=== PATIENT | female | born 1965 ===

== ENCOUNTER 2017-09-28 20:07 | Inpatient (IN) | payer OTHER ==
[2017-09-28 20:47] LABS: Hematocrit 35.5 % (30.3-42.9); Hemoglobin 11.7 gm/dl (10.1-14.3); Mean Corpuscular HGB Conc 33 % (30-34); Mean Corpuscular Hemoglobin 27 pg (28-32); Mean Corpuscular Volume 82 fl (79-97); Platelet Count 246 K/mm3 (140-440); Red Blood Count 4.35 M/mm3 (3.65-5.03); White Blood Count 4.8 K/mm3 (4.5-11.0)
[2017-09-28 20:51] LABS: Basophils % (Auto) 0.5 % (0.0-1.8); Eosinophils % (Auto) 3.5 % (0.0-4.3)
[2017-09-28 20:55] LABS: Anion Gap 19 mmol/L; BUN/Creatinine Ratio 14; Blood Urea Nitrogen 11 mg/dL (7-17); Calcium 9.1 mg/dL (8.4-10.2); Carbon Dioxide 22 mmol/L (22-30); Chloride 101.6 mmol/L (98-107); Glucose 111 mg/dL (65-100); INR 0.88 (0.87-1.13); Potassium 4.1 mmol/L (3.6-5.0); Sodium 138 mmol/L (137-145)
[2017-09-28 20:56] LABS: Partial Thromboplastin Time 34.9 Sec. (24.2-36.6)
--- NOTE | 2017-09-28 21:06 | Emergency Department Report ---
ED Chest Pain HPI - General Chief Complaint: Chest Pain Stated Complaint: CHEST PAIN Time Seen by Provider: 09/28/17 21:00 Source: patient Mode of arrival: Ambulatory Limitations: No Limitations - History of Present Illness Initial Comments: Patient is a 52-year-old female presents with chest pain for 3 days. chest pain over the past 3 days as been intermittent. Pain returned tonight at 7 PM worse than it has ever been over the past 3 days. She states that the pain is radiating to her neck and left arm. Patient states she that her blood pressure medications for 3 months and has extremely high blood pressure today. Patient also complains of a cough 1 week. Patient denies nausea vomiting diarrhea. Patient states she is also having some mild shortness of breath that is new and started at 7 PM tonight. MD Complaint: chest pain -: Sudden Onset: during rest Pain Location: substernal Pain Radiation: LUE, neck Severity: severe Severity scale (0 -10): 10 Quality: sharp Improves With: rest Worsens With: exertion, inspiration, movement Context: recent travel Other Symptoms: cough Treatments Prior to Arrival: none Aspirin use within the Past 7 Days: (0) No - Related Data On Oral Contraceptives: No Home Medications Medication Instructions Recorded Confirmed Last Taken No Known Home Medications [No 09/28/17 09/28/17 Unknown Reported Home Medications] Allergies Allergy/AdvReac Type Severity Reaction Status Date / Time No Known Allergies Allergy Verified 09/28/17 20:25 Heart Score - HEART Score History: Slightly suspicious EKG: Normal Age: 45-65 Risk factors: 1-2 risk factors Troponin: < normal limit HEART Score: 2 ED Review of Systems ROS: Stated complaint: CHEST PAIN Other details as noted in HPI Constitutional: no symptoms reported Eyes: as per HPI ENT: as per HPI Respiratory: see HPI, cough, shortness of breath, SOB with exertion, SOB at rest Cardiovascular: as per HPI, chest pain, dyspnea on exertion Endocrine: no symptoms reported Gastrointestinal: as per HPI Genitourinary: as per HPI Musculoskeletal: as per HPI Skin: as per HPI Neurological: as per HPI Psychiatric: as per HPI Hematological/Lymphatic: as per HPI ED Past Medical Hx - Past Medical History Previous Medical History?: Yes Hx Hypertension: Yes (noncompliance) Additional medical history: Obesity. Chronic Headaches - Surgical History Past Surgical History?: Yes Additional Surgical History: Right Neck - Social History Smoking Status: Never Smoker Substance Use Type: None - Medications Home Medications: Home Medications Medication Instructions Recorded Confirmed Last Taken Type No Known Home Medications [No 09/28/17 09/28/17 Unknown History Reported Home Medications] ED Physical Exam - General Limitations: No Limitations General appearance: alert, in no apparent distress - Head Head exam: Present: atraumatic, normocephalic - Eye Eye exam: Present: normal appearance - ENT ENT exam: Present: mucous membranes moist - Neck Neck exam: Present: normal inspection - Respiratory Respiratory exam: Present: normal lung sounds bilaterally. Absent: respiratory distress - Cardiovascular Cardiovascular Exam: Present: regular rate, normal rhythm, other (tenderness to palpation noted). Absent: systolic murmur, diastolic murmur, rubs, gallop - GI/Abdominal GI/Abdominal exam: Present: soft, normal bowel sounds - Extremities Exam Extremities exam: Present: normal inspection - Back Exam Back exam: Present: normal inspection - Neurological Exam Neurological exam: Present: alert, oriented X3 - Psychiatric Psychiatric exam: Present: normal affect, normal mood - Skin Skin exam: Present: warm, dry, intact, normal color. Absent: rash ED Course Vital Signs 09/28/17 09/28/17 09/28/17 20:14 20:25 21:31 Temperature 98.1 F Pulse Rate 84 84 84 Respiratory 18 18 Rate Blood Pressure 222/104 192/91 Blood Pressure 226/126 [Right] O2 Sat by Pulse 100 100 Oximetry 09/28/17 09/28/17 09/29/17 22:36 23:51 00:00 Temperature Pulse Rate 87 69 Respiratory 16 17 Rate Blood Pressure 190/97 Blood Pressure 159/87 [Right] O2 Sat by Pulse 98 98 98 Oximetry 09/29/17 00:15 Temperature Pulse Rate 66 Respiratory 16 Rate Blood Pressure 190/97 Blood Pressure [Right] O2 Sat by Pulse 97 Oximetry DUONG score - Duong Score Age > 65: (0) No Aspirin use within the Past 7 Days: (0) No 3 or more CAD Risk Factors: (0) No 2 or more Angina events in past 24 hrs: (1) Yes Known CAD with more than 50% Stenosis: (0) No Elevated Cardiac Markers: (0) No ST Deviation Greater than 0.5mm: (0) No DUONG Score: 1 ED Medical Decision Making - Lab Data Result diagrams: 09/28/17 20:31 09/28/17 20:31 - EKG Data -: EKG Interpreted by Me EKG shows normal: sinus rhythm Rate: normal - EKG Data When compared to previous EKG there are: no significant change - Radiology Data Radiology results: report reviewed CT negative for PE - Medical Decision Making 52-year-old female presents to the ER with chest pain shortness of breath. Patient found to have hypertensive urgency. Discussed case with hospitalist. Hospitalist agreed to admit. - Differential Diagnosis cp. pe, sob, angina, htn Critical care attestation.: If time is entered above; I have spent that time in minutes in the direct care of this critically ill patient, excluding procedure time. ED Disposition Clinical Impression: Chest pain, Shortness of breath, Hypertensive urgency Disposition: OP ADMIT IP TO THIS HOSP Is pt being admited?: Yes Does the pt Need Aspirin: No Condition: Serious
[2017-09-28] MEDS ORDERED: LOPRESSOR IV ONE (21:15)
[2017-09-28] MEDS ORDERED: ASPIRIN PO ONE (21:15)
[2017-09-28 21:47] LABS: Alanine Aminotransferase 10 units/L (7-56); Albumin/Globulin Ratio 1.5 %; Alkaline Phosphatase 60 units/L (35-129); Anion Gap 16 mmol/L; BUN/Creatinine Ratio 15; Bilirubin,Total < 0.20 mg/dL (0.1-1.2); Blood Urea Nitrogen 12 mg/dL (7-17); Calcium 9.4 mg/dL (8.4-10.2); Carbon Dioxide 26 mmol/L (22-30); Chloride 101.8 mmol/L (98-107); Glucose 112 mg/dL (65-100); Potassium 4.2 mmol/L (3.6-5.0); Sodium 140 mmol/L (137-145); Total Protein 6.6 g/dL (6.3-8.2)
--- NOTE | 2017-09-29 01:04 | Cat Scan Report ---
FINAL REPORT EXAM: CT ANGIO CHEST HISTORY: sob. chest pain TECHNIQUE: A CT angiogram was obtained of the thorax following the intravenous injection of 100 cc of Omnipaque 350. MIP rotational, sagittal and coronal reconstructions were reviewed. FINDINGS: There is no evidence of pulmonary embolus or aortic dissection. The heart size is normal. The lungs are not congested. There is no evidence of adenopathy. The lungs are clear. Pleural fluid is not identified. In the upper abdomen the adrenal glands appear normal. At the thoracic inlet the thyroid gland appears normal. The skeletal structures are well-maintained. IMPRESSION: No evidence of pulmonary embolus or aortic dissection No acute process in the chest
[2017-09-29] MEDS ORDERED: MORPHINE IV ONE (01:23)
[2017-09-29] MEDS ORDERED: LOPRESSOR IV ONE (01:23)
[2017-09-29 01:58] LABS: Bilirubin,Urine NEG (Negative); Blood,Urine NEG (Negative); Ketones,Urine NEG (Negative); Leukocyte Esterase,Urine NEG (Negative); Nitrite,Urine NEG (Negative); Protein,Urine <15 mg/dL mg/dL (Negative); Urobilinogen,Urine < 2.0 mg/dL (<2.0); WBC,Urine < 1.0 /HPF (0.0-6.0)
[2017-09-29] MEDS ORDERED: CATAPRES PO ONE (02:14)
[2017-09-29] MEDS ORDERED: CATAPRES ONE (02:20)
[2017-09-29] MEDS ORDERED: ZOFRAN IV PRN (02:30)
[2017-09-29] MEDS ORDERED: DULCOLAX PR PRN (02:30)
[2017-09-29] MEDS ORDERED: MILK OF MAGNESIA PO PRN (02:30)
[2017-09-29] MEDS ORDERED: APRESOLINE IV PRN ×2 (02:30→12:23)
[2017-09-29] MEDS ORDERED: MORPHINE IV PRN (02:30)
--- NOTE | 2017-09-29 02:33 | History and Physical Report ---
History of Present Illness Date of examination: 09/29/17 History of present illness: 63 -year-old man with a history of hypertension, noncompliant with medication 3 months, comes emergency room with complaints of chest pain. Chest pain in with left epigastric area since Monday, which he describes a sharp sensation, intensity 5/10, radiating to bilateral arms, she cannot identify exacerbating or relieving factors. Complaining of shortness of breath, no nausea vomiting and, diaphoresis or palpitation. Review Of Systems: Constitutional: no weight loss Ears, eyes, nose, mouth and throat: no nasal congestion, no nasal discharge, no sinus pressure, blurry vision, diplopia Neck: No neck pain or rigidity. Cardiovascular: no orthopnea Respiratory: No cough Gastrointestinal:no abdominal pain, hematochezia Genitourinary : no dysuria, frequency , hematuria Musculoskeletal: no muscle ache Integumentary: no rash, no pruritis Neurological: no parathesias, focal weakness Endocrine: no cold or heat intolerance, no polyuria or polydipsia Hematologic/Lymphatic: no easy bruising, no easy bruising PAST MEDICAL HISTORY hypertension PAST SURGICAL HISTORY: none FAMILY HISTORY: Hypertension SOCIAL HISTORY: Denies alcohol, drugs, tobacco Medications and Allergies Allergies Allergy/AdvReac Type Severity Reaction Status Date / Time No Known Allergies Allergy Verified 09/28/17 20:25 Home Medications Medication Instructions Recorded Confirmed Last Taken Type No Known Home Medications [No 09/28/17 09/28/17 Unknown History Reported Home Medications] Active Meds: Active Medications Hydralazine HCl (Apresoline) 5 mg IV Q6HR PRN PRN Reason: Hypertension Exam - Physical Exam Narrative exam: Gen. appearance: Patient lying in bed in no acute distress HEENT: Normocephalic/atraumatic, pupils equal round reactive to light, extra alkaline movement intact, no scleral icterus, no JVD or thyromegaly or nodule, neck is supple, mucous membrane moist, no erythema or exudate Heart: S1-S2, regular rate and rhythm Lungs: Clear to auscultation bilateral breathing comfortable Abdomen: Positive bowel sounds, nontender, nondistended, no organomegaly Extremities: No edema, cyanosis, clubbing Neuro:: Oriented 3 , cranial nerves II-12 intact, speech, motor intact Skin: No rash, nodules, warm dry - Constitutional Vitals: Temp Pulse Resp BP Pulse Ox 98.4 F 58 L 13 184/93 97 09/29/17 01:18 09/29/17 02:01 09/29/17 02:01 09/29/17 02:01 09/29/17 02:01 Results - Labs CBC & Chem 7: 09/28/17 20:31 09/28/17 20:31 Labs: Abnormal lab results 09/28/17 09/28/17 09/28/17 Range/Units 20:31 20:31 20:31 MCH 27 L (28-32) pg [place] % (Auto) 9.3 H (0.0-7.3) % D-Dimer (0-234) ng/mlDDU Glucose 111 H 112 H (65-100) mg/dL 09/28/17 Range/Units 21:28 MCH (28-32) pg [place] % (Auto) (0.0-7.3) % D-Dimer 670.47 H (0-234) ng/mlDDU Glucose (65-100) mg/dL - Imaging and Cardiology EKG: image reviewed Chest x-ray: image reviewed Assessment and Plan Assessment Hypertensive urgency Chest pain Plan Admit to medicine Check cardiac enzymes, stress test Continued appropriate out patient medications, IV morphine, IV hydralazine , DVT prophylaxis
[2017-09-29 03:29] LABS: Creatine Kinase MB 1.1 ng/mL (0.0-4.0)
[2017-09-29 03:30] LABS: Creatine Kinase 104 units/L (30-135)
[2017-09-29] MEDS ORDERED: NACL ONE (05:29)
[2017-09-29 06:45] LABS: Creatine Kinase MB 1.1 ng/mL (0.0-4.0)
[2017-09-29 06:48] LABS: Creatine Kinase 97 units/L (30-135)
[2017-09-29] MEDS ORDERED: LEXISCAN IV ONE ×2 (08:40→08:50)
[2017-09-29] MEDS: LOVENOX SUB-Q SCH (09:40)
[2017-09-29] MEDS ORDERED: LOVENOX SUB-Q SCH (10:00)
--- NOTE | 2017-09-29 12:30 | Event Note ---
Date: 09/29/17 lexiscan stress: lv ef 59%. no evidence of myocardial ischemia or necrosis
[2017-09-29] MEDS: APRESOLINE PO SCH ×3 (12:55→21:02)
[2017-09-29] MEDS: NORVASC PO SCH (12:55)
--- NOTE | 2017-09-29 14:15 | Treadmill Report ---
NUCLEAR CARDIAC IMAGING INDICATION FOR PROCEDURE: Chest pain. Informed consent was obtained. DESCRIPTION OF PROCEDURE: Vasodilator stress was achieved with 0.4 mg of intravenous Lexiscan per protocol. Rest and stress nuclear cardiac imaging were performed per protocol using 10 mCi of technetium-99m Myoview and 28 mCi of technetium-99m Myoview respectively. Gated SPECT imaging demonstrates a post-stress left ventricular ejection fraction of 57% with normal wall motion. Myocardial perfusion imaging demonstrates no significant cavity change between stress and rest. No significant stress induced perfusion defects are seen. Nuclear cardiac imaging demonstrates grossly normal post-stress left ventricular systolic function with no significant evidence of myocardial ischemia or necrosis. JOB# [id number] KENY/MAK
--- NOTE | 2017-09-29 17:35 | Progress Note ---
History Interval history: Patient admitted with chest pain and hypertensive emergency. I have seen and examined her today. BP still elevated. Start Norvasc and Hydralazine po. Hospitalist Physical - Constitutional Vitals: Temp Pulse Resp BP Pulse Ox 98.4 F 84 18 138/94 100 09/29/17 13:29 09/29/17 13:29 09/29/17 13:29 09/29/17 13:29 09/29/17 13:29 Results - Labs CBC & Chem 7: 09/28/17 20:31 09/28/17 20:31 Labs: Laboratory Last Values WBC 4.8 K/mm3 (4.5-11.0) 09/28/17 20: RBC 4.35 M/mm3 (3.65-5.03) 09/28/17 20: Hgb 11.7 gm/dl (10.1-14.3) 09/28/17 20:31 Hct 35.5 % (30.3-42.9) 09/28/17 20:31 MCV 82 fl (79-97) 09/28/17 20:31 MCH 27 pg (28-32) L 09/28/17 20:31 MCHC 33 % (30-34) 09/28/17 20:31 RDW 15.0 % (13.2-15.2) 09/28/17 20:31 Plt Count 246 K/mm3 (140-440) 09/28/17 20:31 Lymph % (Auto) 34.6 % (13.4-35.0) 09/28/17 20:31 [place] % (Auto) 9.3 % (0.0-7.3) H 09/28/17 20:31 Eos % (Auto) 3.5 % (0.0-4.3) 09/28/17 20:31 Baso % (Auto) 0.5 % (0.0-1.8) 09/28/17 20: Lymph # 1.8 K/mm3 (1.2-5.4) 09/28/17 20:31 [place] # 0.5 K/mm3 (0.0-0.8) 09/28/17 20: Eos # 0.2 K/mm3 (0.0-0.4) 09/28/17 20: Baso # 0.0 K/mm3 (0.0-0.1) 09/28/17 20:31 Seg Neutrophils % 52.1 % (40.0-70.0) 09/28/17 20:31 Seg Neutrophils # 2.7 K/mm3 (1.8-7.7) 09/28/17 20:31 PT 12.4 Sec. (12.2-14.9) 09/28/17 20:31 INR 0.88 (0.87-1.13) 09/28/17 20:31 APTT 34.9 Sec. (24.2-36.6) 09/28/17 20:31 D-Dimer 670.47 ng/mlDDU (0-234) H 09/28/17 21:28 Sodium 140 mmol/L (137-145) 09/28/17 20:31 Potassium 4.2 mmol/L (3.6-5.0) 09/28/17 20:31 Chloride 101.8 mmol/L (98-107) 09/28/17 20:31 Carbon Dioxide 26 mmol/L (22-30) 09/28/17 20:31 Anion Gap 16 mmol/L 09/28/17 20:31 BUN 12 mg/dL (7-17) 09/28/17 20:31 Creatinine 0.8 mg/dL (0.7-1.2) 09/28/17 20:31 Estimated GFR > 60 ml/min 09/28/17 20:31 BUN/Creatinine Ratio 15 % 09/28/17 20:31 Glucose 112 mg/dL (65-100) H 09/28/17 20:31 Calcium 9.4 mg/dL (8.4-10.2) 09/28/17 20:31 Total Bilirubin < 0.20 mg/dL (0.1-1.2) 09/28/17 20:31 AST 12 units/L (5-40) 09/28/17 20:31 ALT 10 units/L (7-56) 09/28/17 20:31 Alkaline Phosphatase 60 units/L (35-129) 09/28/17 20:31 Total Creatine Kinase 97 units/L (30-135) 09/29/17 05:53 CK-MB (CK-2) 1.1 ng/mL (0.0-4.0) 09/29/17 05:53 CK-MB (CK-2) Rel Index 1.1 (0-4) 09/29/17 05:53 Troponin T < 0.010 ng/mL (0.00-0.029) 09/29/17 05:53 NT-Pro-B Natriuret Pep 69.70 pg/mL (0-900) 09/28/17 20:31 Total Protein 6.6 g/dL (6.3-8.2) 09/28/17 20:31 Albumin 4.0 g/dL (3.9-5) 09/28/17 20:31 Albumin/Globulin Ratio 1.5 % 09/28/17 20:31 HCG, Qual Negative (Negative) 09/28/17 20:31 Urine Color Straw (Yellow) 09/29/17 01:10 Urine Turbidity Clear (Clear) 09/29/17 01:10 Urine pH 7.0 (5.0-7.0) 09/29/17 01:10 Ur Specific [place] 1.006 (1.003-1.030) 09/29/17 01:10 Urine Protein <15 mg/dl mg/dL (Negative) 09/29/17 01:10 Urine Glucose (UA) Neg mg/dL (Negative) 09/29/17 01:10 Urine Ketones Neg mg/dL (Negative) 09/29/17 01:10 Urine Blood Neg (Negative) 09/29/17 01:10 Urine Nitrite Neg (Negative) 09/29/17 01:10 Urine Bilirubin Neg (Negative) 09/29/17 01:10 Urine Urobilinogen < 2.0 mg/dL (<2.0) 09/29/17 01:10 Ur Leukocyte Esterase Neg (Negative) 09/29/17 01:10 Urine WBC (Auto) < 1.0 /HPF (0.0-6.0) 09/29/17 01:10 Urine RBC (Auto) 1.0 /HPF (0.0-6.0) 09/29/17 01:10 U Epithel Cells (Auto) < 1.0 /HPF (0-13.0) 09/29/17 01:10 Hyaline Casts 1 /LPF 09/29/17 01:10
[2017-09-29] MEDS: TYLENOL PO PRN (21:02)
[2017-09-30 06:31] LABS: Basophils % (Auto) 0.1 % (0.0-1.8); Eosinophils % (Auto) 1.4 % (0.0-4.3); Hematocrit 36.3 % (30.3-42.9); Hemoglobin 12.1 gm/dl (10.1-14.3); Mean Corpuscular HGB Conc 33 % (30-34); Mean Corpuscular Hemoglobin 27 pg (28-32); Mean Corpuscular Volume 80 fl (79-97); Platelet Count 272 K/mm3 (140-440); Red Blood Count 4.51 M/mm3 (3.65-5.03); Red Cell Distribution Width 15.3 % (13.2-15.2)
[2017-09-30 07:04] LABS: Anion Gap 15 mmol/L; BUN/Creatinine Ratio 17; Blood Urea Nitrogen 10 mg/dL (7-17); Calcium 9.1 mg/dL (8.4-10.2); Carbon Dioxide 26 mmol/L (22-30); Glucose 94 mg/dL (65-100); Sodium 140 mmol/L (137-145)
[2017-09-30] MEDS: APRESOLINE PO SCH ×2 (07:22→09:52)
[2017-09-30] MEDS: TYLENOL PO PRN (08:14)
[2017-09-30 08:35] VITALS: BP 168/90
--- NOTE | 2017-09-30 09:37 | Discharge Summary ---
Providers - Providers Date of Admission: 09/29/17 02:30 Date of discharge: 09/30/17 Attending physician: RAFAEL MARTIN Primary care physician: JOELLEN GARNER MD Hospitalization Condition: Fair Disposition: DC-01 TO HOME OR SELFCARE Core Measure Documentation - Palliative Care Palliative Care/ Comfort Measures: Not Applicable - Core Measures Any of the following diagnoses?: none Exam - Constitutional Vitals: Temp Pulse Resp BP Pulse Ox 98.4 F 86 20 168/90 99 09/30/17 08:25 09/30/17 09:19 09/30/17 09:19 09/30/17 08:25 09/30/17 09:19 Plan Activity: no restrictions Diet: low fat, low cholesterol, low salt Additional Instructions: 1.Follow up with [facility] in 1 week. Follow up with: PRIMARY CARE, [Primary Care Provider] - 7 Days Prescriptions: amLODIPine [Norvasc] 5 mg PO QDAY #30 tablet Hydralazine HCl 50 mg PO TID #90 tablet
[2017-09-30] MEDS: NORVASC PO SCH (09:38)
[2017-09-30] MEDS: LOVENOX SUB-Q SCH (09:38)
[2017-09-30] MEDS ORDERED: PREVNAR 13 IM ONE (12:00)
[2017-09-30] MEDS ORDERED: Fluarix Quad 2017-2018(36 MOS+ IM ONE (12:00)
== END 2017-09-30 12:14 | disposition home or self-care (01) | DRG 305 ==
LOC: ED 20:07 → 4A 09-29 02:30
PROVIDERS: ADMIT Internal Medicine; ATTEND Internal Medicine
PROC: 3E0234Z Introduction of Serum, Toxoid and Vaccine into Muscle, Percutaneous Approach (ICD-10-PCS; principal; 2017-09-29)
DX: I16.0 Hypertensive urgency (principal); R07.9 Chest pain, unspecified; Z23 Encounter for immunization; I10 Essential (primary) hypertension; Z91.19 Patient's noncompliance with other medical treatment and regimen; Z82.49 Family history of ischemic heart disease and other diseases of the circulatory system
CPT/HCPCS: 36415; 71275; 78452; 80048; 80053; 81001; 82550; 82553; 83880; 84484; 84703; 85025; 85379; 85610; 85730; 90670; 90686; 93005; 93010; 93017; 96374; 96375; 96376; 99285; A9502; J0360; J1650; J2270; J2785; Q9967

== ENCOUNTER 2018-03-09 11:48 | Outpatient (CLI) | payer OTHER ==
--- NOTE | 2018-03-09 15:41 | Mammography Report ---
BILATERAL DIGITAL SCREENING MAMMOGRAM with CAD: 03/09/18 11:48:00 CLINICAL: Baseline screening. FINDINGS: The breasts are almost entirely fatty. No mass, architectural distortion or suspicious calcifications. IMPRESSION: No mammographic evidence of malignancy. BI-RADS CATEGORY: 1 - - Negative RECOMMENDATION: Routine mammographic screening in one year. COMMENT: Patient follow-up letters are generated by our [employer] application.
== END 2018-03-09 11:49 | disposition home or self-care (01) ==
LOC: SPVWC 11:48
DX: Z12.31 Encounter for screening mammogram for malignant neoplasm of breast (principal)
CPT/HCPCS: 77067